=== PATIENT | female | born 1970 | race American Indian/Alaskan Native ===

== ENCOUNTER 2018-01-15 15:20 | Inpatient (IN) | payer SELFPAY ==
[~2018-01-15] VITALS: Ht 172 cm; Wt 73.3 kg
[2018-01-15] VITALS (114 sets, daily range): BP systolic 107–111; BP diastolic 46–63; PULSE 97–112; TEMP 102.8; O2SAT 93–100
[2018-01-15] MEDS ORDERED: GLUCOPHAGE1000 MG PO (16:08)
[2018-01-15 16:11] LABS: BASO % 0.3 % (0.0-2.0); GRAN # 9.5 (1.4-6.5); GRAN % 77.2 % (42.2-75.2); HEMOGLOBIN 13.2 g/dl (12.5-16.0); LYMPH # 1.5 (1.2-3.4); LYMPH % 12.1 % (20.0-51.0); MEAN CELL VOLUME 85 fl (80.0-100.0); MEAN CORPUSCULAR HEMOGLOBIN 31 pg (27.0-31.0); MEAN CORPUSCULAR HGB CONC 36 g/dl (33.0-37.0); MEAN PLATELET VOLUME 10.1 fl (7.4-10.4); MONO # 1.2 (0.1-0.6); MONO % 9.7 % (1.7-9.3); PLATELET COUNT 169 K/mm3 (130-400); RED BLOOD COUNT 4.29 M/mm3 (4.10-5.30)
[2018-01-15 16:17] LABS: HEMATOCRIT 36.5 % (37.0-47.0)
[2018-01-15 16:31] LABS: ALBUMIN 3.9 gm/dL (3.5-5.0); BILIRUBIN,TOTAL 1.6 mg/dL (0.0-1.0); CALCIUM 8.8 mg/dL (8.4-10.2); CREATININE, serum 0.58 mg/dL (0.52-1.25); POTASSIUM 4.5 mmol/L (3.4-5.0); TOTAL PROTEIN 7.6 gm/dL (6.4-8.2)
[2018-01-15 16:59] LABS: COLLECTION METHOD CLEAN CATCH
[2018-01-15 17:05] LABS: C-REACTIVE PROTEIN 35.3 mg/dL (0.0-0.9)
[2018-01-15 17:11] LABS: MUCOUS Present /lpf; PH 5 (5-8); SQUAMOUS EPITHELIAL 0-2 /hpf; URINE APPEARANCE Hazy; URINE BACTERIA None Seen /hpf; URINE BILIRUBIN Negative (NEGATIVE); URINE BLOOD Negative (NEGATIVE); URINE COLOR Yellow; URINE GLUCOSE 3+ (NEGATIVE); URINE KETONE 2+ (NEGATIVE); URINE LEUKOCYTE ESTERASE Trace (NEGATIVE); URINE NITRATE Negative (NEGATIVE); URINE PROTEIN(semi-quant) 1+ (NEGATIVE); URINE RBC 0-2 /hpf; URINE UROBILINOGEN Negative (NEGATIVE)
[2018-01-15 18:21] LABS: MAGNESIUM 1.7 mg/dL (1.6-2.3); PHOSPHOROUS 3.2 mg/dL (2.5-4.5)
[2018-01-15 20:00] LABS: CREATININE, serum 0.53 mg/dL (0.52-1.25); POTASSIUM 4.2 mmol/L (3.4-5.0)
[2018-01-16] VITALS (497 sets, daily range): BP systolic 90–117; BP diastolic 57–68; PULSE 82–95; TEMP 98.8–102.5; O2SAT 93–100
[2018-01-16 00:24] LABS: CALCIUM 7.8 mg/dL (8.4-10.2); CREATININE, serum 0.48 mg/dL (0.52-1.25); MAGNESIUM 1.6 mg/dL (1.6-2.3); PHOSPHOROUS 2.7 mg/dL (2.5-4.5); POTASSIUM 3.6 mmol/L (3.4-5.0)
[2018-01-16 03:27] LABS: CALCIUM 7.9 mg/dL (8.4-10.2); CREATININE, serum 0.52 mg/dL (0.52-1.25); PHOSPHOROUS 2.1 mg/dL (2.5-4.5); POTASSIUM 3.8 mmol/L (3.4-5.0)
[2018-01-16 07:21] LABS: CALCIUM 7.9 mg/dL (8.4-10.2); CREATININE, serum 0.51 mg/dL (0.52-1.25); PHOSPHOROUS 2.7 mg/dL (2.5-4.5); POTASSIUM 3.6 mmol/L (3.4-5.0)
[2018-01-17] VITALS (577 sets, daily range): BP systolic 96–108; BP diastolic 55–73; PULSE 71–90; TEMP 98.6–100.1; O2SAT 92–100
[2018-01-17 06:55] LABS: MEAN CELL VOLUME 85 fl (80.0-100.0); MEAN CORPUSCULAR HGB CONC 36 g/dl (33.0-37.0); MEAN PLATELET VOLUME 10.1 fl (7.4-10.4); PLATELET COUNT 144 K/mm3 (130-400); REDCELL DISTRIBUTION WIDTH-CV 12.1 % (11.5-14.5)
[2018-01-17 07:04] LABS: HEMATOCRIT 29.8 % (37.0-47.0); HEMOGLOBIN 10.7 g/dl (12.5-16.0); MEAN CORPUSCULAR HEMOGLOBIN 31 pg (27.0-31.0)
[2018-01-17 07:06] LABS: CALCIUM 7.9 mg/dL (8.4-10.2); CREATININE, serum 0.47 mg/dL (0.52-1.25); MAGNESIUM 1.9 mg/dL (1.6-2.3); POTASSIUM 3.4 mmol/L (3.4-5.0)
[2018-01-17 08:00] LABS: BAND 4 % (0-10); LYMPHOCYTE 30 % (20.0-51.0); NEUTROPHILS 57 % (42.0-75.2)
[2018-01-17 08:01] LABS: PLATELET ESTIMATE DECREASED (NORMAL)
[2018-01-17 08:03] LABS: MICROCYTOSIS 1+
[2018-01-18 00:09] VITALS: BP 100/58; PULSE 71; TEMP 99.7
[2018-01-18 04:39] VITALS: BP 89/46; BP 97/55; PULSE 68; TEMP 98.8
[2018-01-18 06:38] LABS: BASO % 0.8 % (0.0-2.0); EOS % 0.8 % (0-4.0); GRAN # 2.4 (1.4-6.5); HEMOGLOBIN 10.2 g/dl (12.5-16.0); LYMPH # 1.9 (1.2-3.4); LYMPH % 38.2 % (20.0-51.0); MEAN CELL VOLUME 87 fl (80.0-100.0); MEAN CORPUSCULAR HEMOGLOBIN 30 pg (27.0-31.0); MEAN CORPUSCULAR HGB CONC 34 g/dl (33.0-37.0); MEAN PLATELET VOLUME 9.8 fl (7.4-10.4); MONO # 0.6 (0.1-0.6); MONO % 11.6 % (1.7-9.3); PLATELET COUNT 166 K/mm3 (130-400); RED BLOOD COUNT 3.42 M/mm3 (4.10-5.30); REDCELL DISTRIBUTION WIDTH-CV 12.3 % (11.5-14.5)
[2018-01-18 06:39] LABS: HEMATOCRIT 29.9 % (37.0-47.0)
[2018-01-18 06:53] LABS: CALCIUM 8.4 mg/dL (8.4-10.2); CREATININE, serum 0.47 mg/dL (0.52-1.25); PHOSPHOROUS 4.3 mg/dL (2.5-4.5); POTASSIUM 3.1 mmol/L (3.4-5.0)
[2018-01-18 08:32] VITALS: BP 109/65; PULSE 69; TEMP 98.7
[2018-01-18] MEDS ORDERED: ZESTRIL 10MG10 MG PO (11:05)
[2018-01-18] MEDS ORDERED: DIABETA 5MG5 MG/TAB PO (11:05)
[2018-01-18] MEDS ORDERED: BACTRIM DS 8001 TAB PO (11:10)
== END 2018-01-18 16:29 | disposition home or self-care (01) | DRG 871 ==
LOC: COL.ER 15:20 → ICU 17:42 → MEDICAL 01-17 21:15
PROVIDERS: Emergency Medicine; Hospitalist; Internal Medicine
DX: A41.9 Sepsis, unspecified organism (principal); E11.10 Type 2 diabetes mellitus with ketoacidosis without coma; N10 Acute pyelonephritis; E87.1 Hypo-osmolality and hyponatremia; N39.0 Urinary tract infection, site not specified; E87.4 Mixed disorder of acid-base balance; E87.6 Hypokalemia; K76.0 Fatty (change of) liver, not elsewhere classified
CPT/HCPCS: 99223-AI; 99232-AI; 99233-AI; 99239; J0696; J1644; J1815; J2270; J2405; J3475; J3480; J7030; J7040